=== PATIENT | female | born 2000 | race Caucasian/White ===

== ENCOUNTER 2021-04-04 14:26 | Emergency (ER) | payer OTHER ==
[~2021-04-04] VITALS: Ht 167.6 cm; Wt 90.0 kg
[2021-04-04] MEDS ORDERED: IBUPROFEN 600MG TABLET PO ONE (15:15)
[2021-04-04] MEDS ORDERED: ACET-2708 MT (15:52)
[2021-04-04 16:06] VITALS: BP 119/87
== END 2021-04-04 16:08 | disposition home or self-care (01) ==
LOC: ER 15:39
DX: S80.12XA Contusion of left lower leg, initial encounter (principal); S80.11XA Contusion of right lower leg, initial encounter; V49.9XXA Car occupant (driver) (passenger) injured in unspecified traffic accident, initial encounter; Y93.89 Activity, other specified; Y92.89 Other specified places as the place of occurrence of the external cause; Y99.8 Other external cause status
CPT/HCPCS: 73590; 99283

== ENCOUNTER 2021-08-24 11:19 | Emergency (ER) | payer MEDICAID, OTHER ==
[~2021-08-24] VITALS: Ht 167.6 cm; Wt 100.0 kg
[~2021-08-24 11:19] MED LIST: ACET-2708 MT
[2021-08-24 14:55] VITALS: BP 116/76
== END 2021-08-24 14:43 | disposition admitted as inpatient to this hospital (09) ==
LOC: ER 11:19
DX: R00.2 Palpitations (principal)
CPT/HCPCS: 71045; 81025; 93005; 99283